=== PATIENT | male | born 1965 | race Caucasian/White ===

== ENCOUNTER 2022-09-28 11:51 | Inpatient (IN) | payer BC, OTHER ==
[~2022-09-28] VITALS: Ht 177.8 cm; Wt 93.2 kg
[~2022-09-28 11:51] MED LIST: ONDA8TAB6 PO
[2022-09-28 13:23] LABS: CLARITY,URINE CLEAR (Clear); COLOR,URINE YELLOW (Yellow); GLUCOSE, URINE NEGATIVE (Neg); KETONES,URINE NEGATIVE (Neg); LEUKOCYTE ESTERASE ,URINE NEGATIVE (Neg); NITRITES, URINE NEGATIVE (Neg); OCCULT BLOOD,URINE NEGATIVE (Neg); PH,URINE 6.5 (4.8-8.0); PROTEIN,URINE NEGATIVE (Neg); UROBILINOGEN,URINE 0.2 E.U/dL (0.2-1.0)
[2022-09-28 13:24] LABS: BASOPHILS % (AUTO) 0.4 % (0-1); EOSINOPHILS # (AUTO) 0.1 X10'3 (0-0.9); EOSINOPHILS % (AUTO) 1.3 % (0-6); HEMATOCRIT 42.3 % (42.0-52.0); HEMOGLOBIN 14.8 g/dl (14.0-17.9); LYMPHOCYTES # (AUTO) 1.6 X10'3 (1.1-4.8); MEAN CORPUSCULAR HEMOGLOBIN 30.6 PG (27.0-31.0); MEAN CORPUSCULAR VOLUME 87.3 FL (78-98); MEAN PLATELET VOLUME 6.7 FL (7.4-10.4); MONOCYTES # (AUTO) 0.4 X10'3 (0-0.9); MONOCYTES % (AUTO) 7.5 % (2-12); NEUTROPHILS # (AUTO) 3.2 X10'3 (1.8-7.7); NEUTROPHILS % (AUTO) 59.8 % (42-75); PLATELET COUNT 284 X10'3 (140-440); RED BLOOD COUNT 4.85 X10'6 (4.70-6.10); RED CELL DISTRIBUTION WIDTH 12.5 % (11.5-14.5); WHITE BLOOD COUNT 5.3 X10'3 (4.5-11.0)
[2022-09-28 13:25] LABS: UA COLLECTION TYPE CLN CATCH MIDSTREAM
[2022-09-28 13:43] LABS: ALANINE AMINOTRANSFERASE 37 U/L (12-78); ALBUMIN 4.1 G/DL (3.4-5.0); ALBUMIN/GLOBULIN RATIO 1.2 (1.1-1.5); ALKALINE PHOSPHATASE 46 IU/L (46-116); ANION GAP 9 (8-16); ASPARTATE AMINO TRANSFERASE 24 U/L (10-37); BILIRUBIN,TOTAL 0.9 MG/DL (0.1-1.0); BLOOD UREA NITROGEN 10 MG/DL (7-18); BUN/CREATININE RATIO 9.3 (10.0-20.0); CALCIUM 9.5 MG/DL (8.5-10.1); CHLORIDE 106 MMOL/L (99-107); CREATININE 1.07 MG/DL (0.60-1.10); GLUCOSE 105 MG/DL (70-104); LIPASE < 50 U/L (73-393); POTASSIUM 4.1 MMOL/L (3.5-5.1); SODIUM 142 MMOL/L (135-145); TOTAL CARBON DIOXIDE 27.1 MMOL/L (24-32); TOTAL PROTEIN 7.6 G/DL (6.4-8.2); eGFR 71 ML/MIN
[2022-09-28] MEDS ORDERED: iohexol 300mg/ml 100ml inj. ONE (17:12)
[2022-09-28] MEDS ORDERED: oxyCODONE IR 5mg (immed. release) tablet PO ONE (18:30)
[2022-09-28] MEDS ORDERED: HYDROcodone/acetaminophen 10/325mg tab PO ONE (18:30)
[2022-09-28] MEDS ORDERED: baclofen 10mg tablet PO PRN (18:30)
[2022-09-28] MEDS ORDERED: acetaminophen 650mg rectal suppository RC PRN (21:00)
[2022-09-28] MEDS ORDERED: HYDROcodone/acetaminophen 5mg/325mg tablet PO PRN (21:00)
[2022-09-28] MEDS ORDERED: morphine 2 MG/ML inj. syringe IV PRN (21:00)
[2022-09-28] MEDS ORDERED: diphenhydrAMINE 50 mg/ml inj IV PRN (21:00)
[2022-09-28] MEDS ORDERED: acetaminophen 325mg tablet PO PRN ×2 (21:00)
[2022-09-28] MEDS ORDERED: ondansetron 4mg rapidly disintigrating tab PO PRN (21:00)
[2022-09-28] MEDS ORDERED: bisacodyl 10mg suppository rectal RC PRN (21:00)
[2022-09-28] MEDS ORDERED: diphenhydrAMINE 25mg capsule PO PRN (21:00)
[2022-09-28] MEDS ORDERED: mag hydrox/Alum hydrox/simeth 30ml oral suspension PO PRN (21:00)
[2022-09-28] MEDS ORDERED: magnesium hydroxide 30ml (MOM) UD suspension PO PRN (21:00)
[2022-09-28] MEDS ORDERED: ondansetron/PF 4mg/2ml inj IV PRN (21:00)
[2022-09-28] MEDS ORDERED: temazepam 15mg capsule PO PRN (21:00)
[2022-09-28] MEDS: dextrose 5%-1/2 normal saline 1,000 ML IV SCH (21:23)
[2022-09-28 22:19] LABS: APTT 30 SECONDS (22-32)
[2022-09-28 22:25] LABS: URINE AMPHETAMINE SCREEN NEGATIVE (Neg); URINE BARBITUATE SCREEN NEGATIVE (Neg); URINE BENZODIAZEPINES SCREEN NEGATIVE (Neg); URINE CANNABINOID SCREEN NEGATIVE (Neg); URINE COCAINE SCREEN NEGATIVE (Neg); URINE METHADONE SCREEN NEGATIVE (Neg); URINE OPIATE SCREEN POSITIVE (Neg); URINE PHENCYCLIDINE SCREEN NEGATIVE (Neg)
[2022-09-28 22:29] LABS: C-REACTIVE PROTEIN 0.21 MG/DL (0.0-0.5); MAGNESIUM 2.1 MG/DL (1.5-2.4); PHOSPHORUS 4.2 MG/DL (2.3-4.5)
[2022-09-28 22:35] VITALS: BP 151/87; PULSE 62; RESP 16; TEMP 97.5; O2SAT 100
[2022-09-29 01:22] LABS: HEMOGLOBIN A1C 5.4 % (4.5-6.2)
[2022-09-29 06:00] VITALS: BP 134/80; PULSE 57; RESP 17; TEMP 97.6; O2SAT 97
--- NOTE | 2022-09-29 06:26 | NUR ---
Problems reprioritized. Patient report given, questions answered & plan of care reviewed with belem Parikh.
[2022-09-29] MEDS: dextrose 5%-1/2 normal saline 1,000 ML IV SCH ×2 (06:29→17:42)
[2022-09-29] MEDS: morphine 2 MG/ML inj. syringe IV PRN ×2 (06:30→11:55)
[2022-09-29 06:42] LABS: BASOPHILS % (AUTO) 0.6 % (0-1); EOSINOPHILS # (AUTO) 0.1 X10'3 (0-0.9); EOSINOPHILS % (AUTO) 2.9 % (0-6); HEMATOCRIT 39.4 % (42.0-52.0); HEMOGLOBIN 14.1 g/dl (14.0-17.9); LYMPHOCYTES # (AUTO) 1.5 X10'3 (1.1-4.8); LYMPHOCYTES % (AUTO) 31.4 % (21-51); MEAN CORPUSCULAR HEMOGLOBIN 31.1 PG (27.0-31.0); MEAN CORPUSCULAR HGB CONC 35.8 g/dL (33.0-36.5); MEAN CORPUSCULAR VOLUME 86.8 FL (78-98); MEAN PLATELET VOLUME 6.8 FL (7.4-10.4); MONOCYTES # (AUTO) 0.5 X10'3 (0-0.9); MONOCYTES % (AUTO) 10.4 % (2-12); NEUTROPHILS # (AUTO) 2.5 X10'3 (1.8-7.7); NEUTROPHILS % (AUTO) 54.7 % (42-75); PLATELET COUNT 263 X10'3 (140-440); RED BLOOD COUNT 4.54 X10'6 (4.70-6.10); WHITE BLOOD COUNT 4.6 X10'3 (4.5-11.0)
[2022-09-29 07:10] LABS: ALANINE AMINOTRANSFERASE 32 U/L (12-78); ALBUMIN 3.5 G/DL (3.4-5.0); ALBUMIN/GLOBULIN RATIO 1.2 (1.1-1.5); ALKALINE PHOSPHATASE 48 IU/L (46-116); ANION GAP 8 (8-16); ASPARTATE AMINO TRANSFERASE 20 U/L (10-37); BILIRUBIN,TOTAL 0.4 MG/DL (0.1-1.0); BLOOD UREA NITROGEN 10 MG/DL (7-18); CHLORIDE 107 MMOL/L (99-107); CHOL/HDL RATIO 3.2 (0.00-4.99); CHOLESTEROL 119 MG/DL (0-200); GLUCOSE 132 MG/DL (70-104); HDL CHOLESTEROL 37 MG/DL (35-60); LDL CHOLESTEROL 65 MG/DL (50-100); POTASSIUM 3.7 MMOL/L (3.5-5.1); SODIUM 143 MMOL/L (135-145); TOTAL CARBON DIOXIDE 28.1 MMOL/L (24-32); TOTAL PROTEIN 6.5 G/DL (6.4-8.2); TRIGLYCERIDES 109 MG/DL (20-135); eGFR 77 ML/MIN
[2022-09-29] MEDS: heparin, porcine 5000 units/ml vial SQ SCH ×2 (08:00→20:19)
[2022-09-29] MEDS ORDERED: pantoprazole 40MG/NS 100ML BAG 100 ML IV SCH (08:00)
[2022-09-29 08:30] VITALS: RESP 16
[2022-09-29] MEDS: polyethylene glycol 3350 17gm powd pack PO SCH ×3 (08:42→20:10)
[2022-09-29] MEDS: HYDROcodone/acetaminophen 10/325mg tab PO PRN ×3 (08:42→18:36)
[2022-09-29] MEDS: docusate sod 100mg capsule PO SCH ×2 (08:42→20:10)
[2022-09-29] MEDS: piperacillin/tazo 4.5gm/100ml 100 ML IV SCH ×2 (08:42→20:19)
[2022-09-29 09:33] LABS: OCCULT BLOOD STOOL NEGATIVE (Neg)
[2022-09-29] MEDS: pantoprazole 40mg Tablet.DR PO SCH ×2 (09:40→20:10)
[2022-09-29 09:58] VITALS: BP 142/90; PULSE 60; RESP 18; TEMP 97.1; O2SAT 97
[2022-09-29] MEDS ORDERED: iohexol 300mg/ml 100ml inj. ONE (14:44)
[2022-09-29] MEDS ORDERED: LORazepam 2 mg/ml vial IV ONE ×2 (15:05→15:25)
[2022-09-29] MEDS ORDERED: BACL-11 PO (16:01)
[2022-09-29] MEDS ORDERED: HYDR-3973 PO (16:01)
[2022-09-29] MEDS ORDERED: OXYC10TA57 PO (16:01)
[2022-09-29] MEDS ORDERED: OXYC-658 PO (16:01)
[2022-09-29] MEDS ORDERED: AMIT10TA10 PO (16:01)
--- NOTE | 2022-09-29 16:05 | NUR ---
Message: Nida Garcia [phone] RE : Dana called pharmacy re: patient home medications to verify, do you want to address home medications in computer? Thank You
--- NOTE | 2022-09-29 16:11 | NUR ---
Contacted Lidia the pharmacist at [facility] all medications are current. Per Dr Nithin sandhu to continue home medications TMS in chart and sent to pharmacy.
[2022-09-29] MEDS ORDERED: non-formulary drug (Ondansetron Hcl (Zofran) 8 MG) PO PRN (16:25)
[2022-09-29] MEDS ORDERED: HYDROcodone/acetaminophen 10/325mg tab PO PRN (16:25)
[2022-09-29] MEDS ORDERED: oxyCODONE IR 5mg (immed. release) tablet PO PRN (16:25)
[2022-09-29 18:00] VITALS: BP 140/92; PULSE 68; RESP 20; TEMP 97.6; O2SAT 97
--- NOTE | 2022-09-29 19:15 | NUR ---
Problems reprioritized. Patient report given, questions answered & plan of care reviewed with lenora BROOKS.
[2022-09-29] MEDS: oxyCODONE SR 10mg (sust. release) tab PO SCH (20:10)
[2022-09-29] MEDS ORDERED: amitriptyline 10mg tablet PO SCH (21:00)
[2022-09-29 22:00] VITALS: BP 125/74; PULSE 72; RESP 17; TEMP 97.9; O2SAT 96
--- NOTE | 2022-09-30 02:07 | NUR ---
Agree with Estela BROOKS assessment except where I documented my findings.
[2022-09-30] MEDS: dextrose 5%-1/2 normal saline 1,000 ML IV SCH (03:32)
[2022-09-30] MEDS: HYDROcodone/acetaminophen 10/325mg tab PO PRN ×2 (03:32→10:44)
[2022-09-30] MEDS: baclofen 10mg tablet PO PRN ×2 (03:39→15:44)
[2022-09-30] MEDS: oxyCODONE IR 5mg (immed. release) tablet PO SCH ×2 (05:26→15:44)
[2022-09-30 06:00] VITALS: BP 134/79; PULSE 67; RESP 18; TEMP 98; O2SAT 94
--- NOTE | 2022-09-30 06:18 | NUR ---
Problems reprioritized. Patient report given, questions answered & plan of care reviewed with HOLLEY BLANCO.
[2022-09-30 07:47] LABS: BASOPHILS % (AUTO) 0.4 % (0-1); EOSINOPHILS # (AUTO) 0.1 X10'3 (0-0.9); EOSINOPHILS % (AUTO) 2.4 % (0-6); HEMATOCRIT 38.2 % (42.0-52.0); HEMOGLOBIN 13.6 g/dl (14.0-17.9); LYMPHOCYTES # (AUTO) 1.3 X10'3 (1.1-4.8); LYMPHOCYTES % (AUTO) 26.4 % (21-51); MEAN CORPUSCULAR HEMOGLOBIN 30.7 PG (27.0-31.0); MEAN CORPUSCULAR HGB CONC 35.6 g/dL (33.0-36.5); MEAN CORPUSCULAR VOLUME 86.3 FL (78-98); MEAN PLATELET VOLUME 6.9 FL (7.4-10.4); MONOCYTES # (AUTO) 0.4 X10'3 (0-0.9); MONOCYTES % (AUTO) 7.6 % (2-12); NEUTROPHILS % (AUTO) 63.2 % (42-75); PLATELET COUNT 250 X10'3 (140-440); RED BLOOD COUNT 4.43 X10'6 (4.70-6.10); RED CELL DISTRIBUTION WIDTH 13.1 % (11.5-14.5); WHITE BLOOD COUNT 4.7 X10'3 (4.5-11.0)
[2022-09-30 07:53] LABS: ALANINE AMINOTRANSFERASE 28 U/L (12-78); ALBUMIN 3.3 G/DL (3.4-5.0); ALBUMIN/GLOBULIN RATIO 1.1 (1.1-1.5); ALKALINE PHOSPHATASE 42 IU/L (46-116); ANION GAP 7 (8-16); ASPARTATE AMINO TRANSFERASE 18 U/L (10-37); BILIRUBIN,TOTAL 0.4 MG/DL (0.1-1.0); BLOOD UREA NITROGEN 9 MG/DL (7-18); BUN/CREATININE RATIO 10.1 (10.0-20.0); CALCIUM 8.5 MG/DL (8.5-10.1); CHLORIDE 108 MMOL/L (99-107); CREATININE 0.89 MG/DL (0.60-1.10); GLUCOSE 119 MG/DL (70-104); POTASSIUM 3.9 MMOL/L (3.5-5.1); SODIUM 142 MMOL/L (135-145); TOTAL CARBON DIOXIDE 27.5 MMOL/L (24-32); TOTAL PROTEIN 6.2 G/DL (6.4-8.2); eGFR 88 ML/MIN
[2022-09-30] MEDS: docusate sod 100mg capsule PO SCH (08:05)
[2022-09-30] MEDS: oxyCODONE SR 10mg (sust. release) tab PO SCH (08:05)
[2022-09-30] MEDS: piperacillin/tazo 4.5gm/100ml 100 ML IV SCH (08:05)
[2022-09-30] MEDS: pantoprazole 40mg Tablet.DR PO SCH (08:05)
[2022-09-30] MEDS: polyethylene glycol 3350 17gm powd pack PO SCH ×2 (08:06→13:10)
[2022-09-30] MEDS: heparin, porcine 5000 units/ml vial SQ SCH (08:07)
[2022-09-30 08:15] VITALS: RESP 18
--- NOTE | 2022-09-30 08:16 | NUR ---
Dr. Dodson called to inquire patients status. Patient is doing well, eating breakfast and drinking, tolerating well. Information will be given to patient concerning contacting [facility] to set appointments and to see Dr. Mark. OK to discharge if patient continues to do well today.
[2022-09-30] MEDS: morphine 2 MG/ML inj. syringe IV PRN (10:49)
--- NOTE | 2022-09-30 10:52 | NUR ---
Patient is complaining about being painful 9/ still. MS 2 mg given. Patient states that Dr. Arthur rounded and stated that he would be changing his pain medications. Will continue to monitor.
[2022-09-30 10:53] VITALS: BP 141/88; PULSE 69; RESP 16; TEMP 97.7; O2SAT 98
[2022-09-30] MEDS ORDERED: HYDROmorphone 1 mg/ml syringe IV ONE ×2 (13:10→15:45)
[2022-09-30] MEDS ORDERED: PANT-47 PO (16:17)
[2022-09-30] MEDS ORDERED: AMOX-580 PO (16:20)
[2022-09-30] MEDS ORDERED: LACT1CAP55 PO (16:20)
[2022-09-30 16:45] VITALS: RESP 18
--- NOTE | 2022-09-30 17:10 | NUR ---
Discharged, IV removed. All education completed. Patient will follow up with Dr. Dodson at [facility], number provided to make appointment on Saturday. All belongings with patient. Medications will be picked up in [place] pharmacy.
[2022-10-01 13:39] LABS: % FREE PSA 36.7 % (.); PSA, FREE 0.22 ng/mL
== END 2022-09-30 17:09 | disposition home or self-care (01) | DRG 394 ==
LOC: ER 11:52 → ORTHO 4S 21:50
PROVIDERS: ADMIT Family Medicine; ATTEND Family Medicine
PROC: BW211ZZ Computerized Tomography (CT Scan) of Abdomen and Pelvis using Low Osmolar Contrast (ICD-10-PCS; principal; 2022-09-28)
PROC: BW241ZZ Computerized Tomography (CT Scan) of Chest and Abdomen using Low Osmolar Contrast (ICD-10-PCS; 2022-09-29)
PROC: 0DBP8ZX Excision of Rectum, Via Natural or Artificial Opening Endoscopic, Diagnostic (ICD-10-PCS; 2022-09-29)
DX: K62.89 Other specified diseases of anus and rectum (principal); K80.10 Calculus of gallbladder with chronic cholecystitis without obstruction; K52.9 Noninfective gastroenteritis and colitis, unspecified; D64.9 Anemia, unspecified; I10 Essential (primary) hypertension; R19.8 Other specified symptoms and signs involving the digestive system and abdomen; K59.00 Constipation, unspecified; F12.90 Cannabis use, unspecified, uncomplicated; N28.1 Cyst of kidney, acquired; G89.29 Other chronic pain; M54.9 Dorsalgia, unspecified; Z88.8 Allergy status to other drugs, medicaments and biological substances; Z79.899 Other long term (current) drug therapy
CPT/HCPCS: 36415; 71260; 72195; 74177; 80053; 80061; 80305; 81003; 82272; 82378; 83036; 83605; 83690; 83735; 83880; 84100; 84153; 84154; 84443; 85025; 85610; 85651; 85730; 86140; 86301; 87040; 87081; 99285; G0378; J1170; J1644; J2060; J2270; J2543; J3490; Q9967